=== PATIENT | female | born 1940 | race Caucasian/White ===

== ENCOUNTER → 2016-07-21 | Outpatient (CLI) | payer MEDICARE, OTHER ==
--- NOTE | 2016-07-21 10:44 | REPMRS ---
Patient History The patient states she has not had a clinical breast exam in over a year. Patient is postmenopausal, has history of other cancer at age 70, has history of cancer in the right breast at age 61, and had previous chemotherapy at age 61. No known family history of cancer. Benign radio exam breast specimen of the left breast, January 23, 2016. Benign stereotatic loc for ea lesion of the left breast, January 23, 2016. Malignant excisional biopsy of the right breast, 2002. Chemotherapy, 2002. Radiation therapy of the right breast, 2002. Took tamoxifen for 5 years. Digital Mammo Diagnostic Unilateral: Left Breast - July 21, 2016 - Exam #: [id number] CC and MLO view(s) were taken of the left breast. Technologist: Laya Napier, Technologist Prior study comparison: December 24, 2015, left breast digital mammo diagnostic unilateral performed at [facility]. November 19, 2015, digital woman screen mammo, performed at [facility]. FINDINGS: There are scattered fibroglandular densities. There has been no change in the appearance of the left breast parenchyma in the interval since the prior examination. There is a needle biopsy marker clip in the left breast. No mass, architectural distortion, or microcalcific cluster has developed. No suspicious finding. ASSESSMENT: BI-RADS/ACR category 2 mammogram. Benign finding(s). Recommendation Routine screening mammogram of both breasts in 6 months. This mammogram was interpreted with the aid of an FDA-approved computer-aided dectection system. Electronically Signed By: Claude Florence MD 07/21/16 0086
== END ==
LOC: M RAD 10:15
PROVIDERS: ATTEND Internal Medicine
DX: R92.1 Mammographic calcification found on diagnostic imaging of breast (principal); Z85.3 Personal history of malignant neoplasm of breast; Z78.0 Asymptomatic menopausal state; Z92.21 Personal history of antineoplastic chemotherapy

== ENCOUNTER → 2016-10-22 | Outpatient (CLI) | payer MEDICARE, OTHER ==
[2016-10-22 13:15] LABS: ANION GAP 8 MEQ/L (8-16); BLOOD UREA NITROGEN 23 MG/DL (7-18); CALCIUM LEVEL 9.5 MG/DL (8.8-10.2); CARBON DIOXIDE LEVEL 28 MEQ/L (21-32); CHLORIDE LEVEL 106 MEQ/L (98-107); CREATININE FOR GFR 0.96 MG/DL (0.55-1.02); GLOMERULAR FILTRATION RATE > 60.0 (>39); GLUCOSE, FASTING 98 MG/DL (83-110); POTASSIUM SERUM 4.7 MEQ/L (3.5-5.1); SODIUM LEVEL 142 MEQ/L (136-145)
--- NOTE | 2016-10-22 13:44 | REP ---
Chest x-ray: Two views. History: Hypertension. Comparison study: October 16, 2010. Findings: The lungs are symmetrically aerated and clear today. Pleural angles are sharp. Heart is not enlarged. There are degenerative changes in the thoracic spine and aorta. Pulmonary vasculature is not increased. Impression: No active disease. Signed by Alexys Florence MD 10/22/2016 02:43 P
--- NOTE | 2016-10-22 20:08 | ECGEPIP ---
Stationary ECG Study [facility] Test Date: 2016-10-22 Pat Name: ROSS JOHNSON Department: Room: - Gender: F [employer] Technician: JESSICA : [id number] Requested By: MADI Carrillo Order Number: [id number] Reading MD: Sylvia Espinoza Measurements Intervals [place] Rate: 66 P: 51 [place]: 166 QRS: 31 QRSD: 82 T: 27 QT: 372 QTc: 392 Interpretive Statements SINUS RHYTHM NO PRIOR Electronically Signed On 10-22-2016 20:08:00 EDT by Sylvia sEpinoza
== END ==
LOC: M LAB 11:01
PROVIDERS: ATTEND Ophthalmology
DX: I10 Essential (primary) hypertension (principal)